=== PATIENT | female | born 1985 | race Caucasian/White ===

== ENCOUNTER → 2016-04-23 | Outpatient (CLI) | payer BC | LOC: KA.LAB 16:13 | PROVIDERS: ATTEND Pediatrics Pediatric Hematology-Oncology | DX: D68.61 Antiphospholipid syndrome (principal); D68.51 Activated protein C resistance; I26.99 Other pulmonary embolism without acute cor pulmonale; R79.1 Abnormal coagulation profile; Z79.01 Long term (current) use of anticoagulants | CPT/HCPCS: 36416; 85610 ==